=== PATIENT | male | born 1990 | race Caucasian/White ===

== ENCOUNTER 2018-04-13 15:13 | Emergency (ER) | payer BC ==
[2018-04-13 15:34] VITALS: BP 136/83
--- NOTE | 2018-04-13 16:15 | UC ---
Back Pain HPI - HPI Summary HPI Summary: The patient is a 28-year-old male who is had a long history of a herniated disc in his lumbar region. He normally experiences his sciatica on his right side. He had an MRI performed here in 2011. He has not had a repeat imaging study for a number of years. He states that he was seen by back specialist in [place] years ago and was told that in less things worsened and he was not a surgical candidate. He did PT and regularly doses stretching exercises. He occasionally has flares of his sciatic pain. He works as a air cargo specialist. He has taken Flexeril in the past. He denies any bowel or bladder dysfunction. He has a pins and needle sensation in his entire left leg. - History of Current Complaint Chief Complaint: UCBackPain Stated Complaint: BACK PAIN Time Seen by Provider: 04/13/18 15:55 Hx Obtained From: Patient Onset/Duration: Gradual Onset, Lasting Hours Severity Initially: Mild Severity Currently: Severe Pain Intensity: 8 Pain Scale Used: 0-10 Numeric Back Pain: Is Diffuse, Radiates To - l leg Aggravating Factor(s): Movement, Bending, Walking Alleviating Factor(s): Rest Associated Signs And Symptoms: Positive: Numbness, Tingling. Negative: Swelling , Redness, Bruising, Fever, Weakness, Abdominal Pain, Flank Pain, Bladder Incontinence, Bowel Incontinence, Weight Loss, Pain with Weight Bearing - Allergies/Home Medications Allergies/Adverse Reactions: Allergies Allergy/AdvReac Type Severity Reaction Status Date / Time No Known Allergies Allergy Verified 04/13/18 15:35 Home Medications: Home Medications Naproxen Sodium [Aleve] 440 mg PO Q8H 04/13/18 [History Confirmed 04/13/18] PMH/Surg Hx/FS Hx/Imm Hx Previously Healthy: Yes - Surgical History Surgical History: None - Family History Known Family History: Positive: Hypertension - Social History Alcohol Use: Weekly Substance Use Type: None Smoking Status (MU): Never Smoked Tobacco Review of Systems All Other Systems Reviewed And Are Negative: Yes Constitutional: Positive: Negative Skin: Positive: Negative Eyes: Positive: Negative ENT: Positive: Negative Respiratory: Positive: Negative Cardiovascular: Positive: Negative Gastrointestinal: Positive: Negative Genitourinary: Positive: Negative Motor: Positive: Negative Neurovascular: Positive: Negative Musculoskeletal: Positive: Myalgia Neurological: Positive: Negative Psychological: Positive: Negative Physical Exam Triage Information Reviewed: Yes Appearance: Well-Appearing, No Pain Distress, Well-Nourished Vital Signs: Initial Vital Signs Temp 98.4 F 04/13/18 15:27 Pulse 79 04/13/18 15:27 Resp 16 04/13/18 15:27 BP 136/83 04/13/18 15:27 Pulse Ox 98 04/13/18 15:27 Vital Signs Reviewed: Yes ENT: Positive: Hearing grossly normal. Negative: Nasal congestion, Nasal drainage, Trismus, Muffled voice, Hoarse voice Neck: Positive: Supple, Nontender Respiratory: Positive: Lungs clear, Normal breath sounds, No respiratory distress, No accessory muscle use Cardiovascular: Positive: RRR, No Murmur Musculoskeletal: Positive: ROM Intact, No Edema Neurological: Positive: Alert, Muscle Tone Normal Skin Exam: Normal Back Pain Course/Dx - Differential Dx/Diagnosis Provider Diagnoses: acute left sciatica Discharge - Sign-Out/Discharge Documenting (check all that apply): Patient Departure All imaging exams completed and their final reports reviewed: No Studies - Discharge Plan Condition: Stable Disposition: HOME Prescriptions: Cyclobenzaprine TAB* [Flexeril TAB*] 10 mg PO TID PRN #15 tab PRN Reason: Spasms methylPREDNISolone [Medrol Dosepak 4 MG*] 0 mg PO .SEE VARINDER INSTRUCTION #1 tab Patient Education Materials: Sciatica (ED) Referrals: No Primary Care Phys,NOPCP [Primary Care Provider] - Additional Instructions: see your primary care provider if not improving (or see your back specialist) If things don't improve in a timely fashion you may need another MRI - Billing Disposition and Condition Condition: STABLE Disposition: Home Images Front/Back of Body, Lg ([place]): 1 - pain 2 - pain 3 - paresthesias
== END 2018-04-13 16:25 | disposition home or self-care (01) ==
LOC: UCEAST 15:13
DX: M54.42 Lumbago with sciatica, left side (principal)
CPT/HCPCS: 99212; G0463